=== PATIENT | male | born 1980 | race Caucasian/White ===

== ENCOUNTER 2019-02-28 02:01 | Emergency (ER) | payer MEDICARE, MEDICAID ==
[2019-02-28] MEDS ORDERED: Sulfamethoxazole/Trimethoprim 400-80 MG Tab PO STA (02:16)
[2019-02-28] MEDS ORDERED: Acetaminophen/HYDROcodone 325-5 MG Tab PO ONE (02:16)
--- NOTE | 2019-02-28 02:19 | EDM.PDOC ---
ED HPI GENERAL MEDICAL PROBLEM - General Chief Complaint: ENT Problem Stated Complaint: TOOTH PAIN Time Seen by Provider: 02/28/19 02:01 Source of Information: Reports: Patient History Limitations: Reports: No Limitations - History of Present Illness INITIAL COMMENTS - FREE TEXT/NARRATIVE: 38 y.o.w.m came to the ed with toothache for several days. Pt does not smoke or drink. 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 [employer]AME ASSEMBLY: Reports: NSAIDS - Related Data Allergies Allergy/AdvReac Type Severity Reaction Status Date / Time aspirin Allergy Rash Verified 02/28/19 02:13 Penicillins Allergy Anaphylactic Verified 02/28/19 02:13 Shock Home Meds: Home Meds Clotrimazole [Lotrimin AF 1% Crm] 1 mg TOP BID #1 tube 02/28/19 [Rx] Sulfamethoxazole/Trimethoprim [Bactrim Ds Tablet] 1 each PO BID #20 tablet 02/28 [Rx] ED ROS ENT - Review of Systems Review Of Systems: See Below Constitutional: Reports: No Symptoms HEENT: Reports: Dental Pain Respiratory: Reports: No Symptoms Cardiovascular: Reports: No Symptoms Endocrine: Reports: No Symptoms GI/Abdominal: Reports: No Symptoms : Reports: No Symptoms Musculoskeletal: Reports: No Symptoms Skin: Reports: No Symptoms Neurological: Reports: No Symptoms Psychiatric: Reports: No Symptoms Hematologic/Lymphatic: Reports: No Symptoms Immunologic: Reports: No Symptoms ED EXAM, ENT - Physical Exam Exam: See Below Exam Limited By: No Limitations General Appearance: Alert, WD/WN, Mild Distress Eye Exam: Bilateral Eye: Normal Inspection Ears: Normal External Exam, Normal Canal Nose: Normal Inspection, Normal Mucousa Mouth/Throat: Dental Pain, Dental Tenderness, Dental Trauma Head: Atraumatic, Normocephalic Neck: Normal Inspection, Supple, Non-Tender, Full Range of Motion Respiratory/Chest: No Respiratory Distress, Lungs Clear, Normal Breath Sounds, Chest Non-Tender Cardiovascular: Normal Peripheral Pulses, Regular Rate, Rhythm, No Edema, No Gallop, No Rub GI/Abdominal: Normal Bowel Sounds, Soft, Non-Tender, No Organomegaly, Pelvis Stable (Male) Exam: Deferred Rectal (Males) Exam: Deferred Back: Normal Inspection, Full Range of Motion Extremities: Normal Inspection, Normal Range of Motion, Non-Tender Neurological: Alert, Oriented, CN II-XII Intact, Normal Cognition, Normal Gait Psychiatric: Normal Affect, Normal Mood Skin: Warm, Dry, Intact, Normal Color, Rash (fugal rash bilateral groins) Lymphatic: No Adenopathy Course - Vital Signs Text/Narrative:: 38 y.o.w.m came to the ed with toothache for several days. Pt does not smoke or drink. 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 BP 160/85 RR 18 Pulse ox 100% on RA Pulse 88 Temp 36.8 PE: WNWD W M with poor dentition and a rash at his groin Impression:Toothache, gingivitis, Tinea cruris Tx: 1 Screven to take home, Bactrim DS. Motrin from his home meds. Lotrimin cream as a prescription Reexam: Pt did fine in the ED Plan: D/C with instructions Last Recorded V/S: Last Vital Signs Temp 36.8 C 02/28/19 02:14 Pulse 88 02/28/19 02:14 Resp 18 02/28/19 02:14 BP 160/85 H 02/28/19 02:14 Pulse Ox 100 02/28/19 02:14 - Orders/Labs/Meds Meds: Medications Discontinued Medications Generic Name Dose Route Start Last Admin Trade Name Emily PRN Reason Stop Dose Admin Hydrocodone Bitart/Acetaminophen 1 tab 02/28/19 02:16 02/28/19 02:29 Screven 325-5 Mg PO 02/28/19 02:17 1 tab ONETIME ONE Administration Trimethoprim/Sulfamethoxazole 1 tab 02/28/19 02:16 Septra PO 02/28/19 02:17 ONETIME STA Trimethoprim/Sulfamethoxazole 1 tab 02/28/19 02:30 02/28/19 02:34 Septra Ds PO 02/28/19 02:31 1 tab ONETIME ONE Administration Departure - Departure Time of Disposition: 02:19 Disposition: Home, Self-Care 01 Condition: Good Clinical Impression: Toothache, Gingivitis - Discharge Information Prescriptions: Clotrimazole [Lotrimin AF 1% Crm] 1 mg TOP BID #1 tube Sulfamethoxazole/Trimethoprim [Bactrim Ds Tablet] 1 each PO BID #20 tablet Referrals: Charito Lundberg INDUSTRIAL RELATIONS SPECIALIST [Primary Care Provider] - Forms: ED Department Discharge Additional Instructions: Please take the ABx as recommended, Motrin for pain, please f/u with your dentist, please come back if your symptoms get worse acutely
[2019-02-28] MEDS ORDERED: Sulfamethoxazole/Trimethoprim 800-160 MG Tab PO ONE (02:30)
== END 2019-02-28 02:45 | disposition home or self-care (01) ==
LOC: FB.ED 02:01
DX: K05.10 Chronic gingivitis, plaque induced (principal); B35.6 Tinea cruris; Z79.899 Other long term (current) drug therapy; Z88.6 Allergy status to analgesic agent; Z88.0 Allergy status to penicillin
CPT/HCPCS: 99282; A9270

== ENCOUNTER → 2019-09-16 | Outpatient (CLI) | payer MEDICARE, MEDICAID | LOC: FB.CLBR 08:00 | PROVIDERS: ATTEND Nurse Practitioner Family | DX: J45.909 Unspecified asthma, uncomplicated (principal) | CPT/HCPCS: 99213 ==

== ENCOUNTER 2019-10-01 14:31 | Emergency (ER) | payer MEDICARE, MEDICAID ==
--- NOTE | 2019-10-01 16:05 | EDM.PDOC ---
ED HPI GENERAL MEDICAL PROBLEM - General Chief Complaint: General Stated Complaint: L SIDE NUMBNESS Time Seen by Provider: 10/01/19 14:35 Source of Information: Reports: Patient History Limitations: Reports: No Limitations - History of Present Illness INITIAL COMMENTS - FREE TEXT/NARRATIVE: Patient presented to the ED because of left lower extremity weakness which started at 11 pm last night. The weakness progressed to the left UE and left facial numbness. He also c/o leaning towards the right side when he tried to walk this morning.. He denies diplopia,blurry vision and there is no noticeable facial droop or slurred speech. left posterior thigh Pain Score (Numeric/FACES): 9 - Related Data Allergies Allergy/AdvReac Type Severity Reaction Status Date / Time aspirin Allergy Rash Verified 02/28/19 02:13 Penicillins Allergy Anaphylactic Verified 02/28/19 02:13 Shock Home Meds: Home Meds Lisinopril 40 mg PO DAILY 10/01/19 [History] Magnesium Oxide 400 mg PO DAILY 10/01/19 [History] amLODIPine [Norvasc] 2.5 mg PO DAILY 10/01/19 [History] hydroCHLOROthiazide [Hydrochlorothiazide] 25 mg PO DAILY 10/01/19 [History] Past Medical History Cardiovascular History: Reports: Hypertension Respiratory History: Reports: Asthma, SOB Social & Family History - Family History Family Medical History: Noncontributory - Tobacco Use Smoking Status *Q: Never Smoker - Caffeine Use Caffeine Use: Reports: Soda - Recreational Drug Use Recreational Drug Use: No ED ROS GENERAL - Review of Systems Review Of Systems: See Below Constitutional: Reports: No Symptoms HEENT: Reports: No Symptoms Respiratory: Reports: No Symptoms Cardiovascular: Reports: No Symptoms Endocrine: Reports: No Symptoms GI/Abdominal: Reports: No Symptoms, Melena : Reports: No Symptoms Musculoskeletal: Reports: No Symptoms, Joint Pain Skin: Reports: No Symptoms Neurological: Reports: No Symptoms, Numbness, Difficulty Walking, Weakness Psychiatric: Reports: No Symptoms Hematologic/Lymphatic: Reports: No Symptoms Immunologic: Reports: No Symptoms ED EXAM, GENERAL - Physical Exam Exam: See Below Exam Limited By: No Limitations General Appearance: Alert, No Apparent Distress Eye Exam: Bilateral Eye: PERRL Course - Vital Signs Text/Narrative:: Labs.HEAD CT,CXR and plan of care was discussed with the patient and his friend EKG-Sinus Tach Trop-neg CXR-neg Head CT neg Patient is not a candidate for thrombolytics because his last time without symptoms was at 11 pm last night. Neuro Consult with Dr Alvarez who agreed with the above plan Last Recorded V/S: Last Vital Signs Temp 37.1 C 10/01/19 14:31 Pulse 99 10/01/19 14:31 Resp 33 H 10/01/19 14:31 BP 163/107 H 10/01/19 14:31 Pulse Ox 96 10/01/19 14:31 - Orders/Labs/Meds Orders: Active Orders 24 hr Category Date Time Status EKG Documentation Completion [RC] ASDIRECTED Care 10/01/19 14:47 Active Chest 1V Frontal [CR] Stat Exams 10/01/19 14:46 Taken Head wo Cont [CT] Stat Exams 10/01/19 14:46 Taken EKG 12 Lead [EK] Routine Ther 10/01/19 14:46 Ordered Labs: Laboratory Tests 10/01/19 10/01/19 10/01/19 Range/Units 15:15 15:15 15:15 WBC 14.6 H (4.5-12.0) X10-3/uL RBC 5.46 (4.30-5.75) x10(6)uL Hgb 16.7 (13.5-17.8) g/dL Hct 49.4 (30.0-51.3) % MCV 90.5 (80-96) fL MCH 30.5 (27.7-33.6) pg MCHC 33.7 (32.2-35.4) g/dL RDW 12.7 (11.5-15.5) % Plt Count 285 (125-369) X10(3)uL MPV 7.8 (7.4-10.4) fL Neut % (Auto) 65.8 (46-82) % Lymph % (Auto) 24.0 (13-37) % Throckmorton % (Auto) 7.5 (4-12) % Eos % (Auto) 0 L (1.0-5.0) % Baso % (Auto) 2 (0-2) % Neut # (Auto) 9.6 H (1.6-8.3) # Lymph # (Auto) 3.5 (0.6-5.0) # Th[place]morton # (Auto) 1.1 (0.0-1.3) # Eos # (Auto) 0.1 (0.0-0.8) # Baso # (Auto) 0.3 H (0.0-0.2) # PT 9.3 (8.7-11.1) INR 0.96 (0.89-1.13) APTT 24.3 L (24.4-33.2) SECONDS Sodium 137 (135-145) mmol/L Potassium 4.4 D (3.5-5.3) mmol/L Chloride 103 (100-110) mmol/L Carbon Dioxide 27 (21-32) mmol/L BUN 10 (7-18) mg/dL Creatinine 0.9 (0.70-1.30) mg/dL Est Cr Clr Drug Dosing 90.44 mL/min Estimated GFR (MDRD) > 60 (>60) BUN/Creatinine Ratio 11.1 (9-20) Glucose 115 (80-116) mg/dL Calcium 9.0 (8.6-10.2) mg/dL Total Bilirubin 0.7 (0.1-1.3) mg/dL AST 71 H (5-25) IU/L ALT 135 H (12-36) U/L Alkaline Phosphatase 120 H (56-112) IU/L Troponin I (<0.017-0.056) ng/mL Total Protein 8.7 H (6.0-8.0) g/dL Albumin 3.9 (3.5-5.2) g/dL Globulin 4.8 g/dL Albumin/Globulin Ratio 0.8 10/01/19 Range/Units 15:15 WBC (4.5-12.0) X10-3/uL RBC (4.30-5.75) x10(6)uL Hgb (13.5-17.8) g/dL Hct (30.0-51.3) % MCV (80-96) fL MCH (27.7-33.6) pg MCHC (32.2-35.4) g/dL RDW (11.5-15.5) % Plt Count (125-369) X10(3)uL MPV (7.4-10.4) fL Neut % (Auto) (46-82) % Lymph % (Auto) (13-37) % [place]morton % (Auto) (4-12) % Eos % (Auto) (1.0-5.0) % Baso % (Auto) (0-2) % Neut # (Auto) (1.6-8.3) # Lymph # (Auto) (0.6-5.0) # Th[place]morton # (Auto) (0.0-1.3) # Eos # (Auto) (0.0-0.8) # Baso # (Auto) (0.0-0.2) # PT (8.7-11.1) INR (0.89-1.13) APTT (24.4-33.2) SECONDS Sodium (135-145) mmol/L Potassium (3.5-5.3) mmol/L Chloride (100-110) mmol/L Carbon Dioxide (21-32) mmol/L BUN (7-18) mg/dL Creatinine (0.70-1.30) mg/dL Est Cr Clr Drug Dosing mL/min Estimated GFR (MDRD) (>60) BUN/Creatinine Ratio (9-20) Glucose (80-116) mg/dL Calcium (8.6-10.2) mg/dL Total Bilirubin (0.1-1.3) mg/dL AST (5-25) IU/L ALT (12-36) U/L Alkaline Phosphatase (56-112) IU/L Troponin I < 0.017 L (<0.017-0.056) ng/mL Total Protein (6.0-8.0) g/dL Albumin (3.5-5.2) g/dL Globulin g/dL Albumin/Globulin Ratio Departure - Departure Time of Disposition: 16:10 Disposition: DC/Tfer to SNF 03 Condition: Good Clinical Impression: CVA (cerebral vascular accident) - Discharge Information Referrals: Luz Fuentes NP [Primary Care Provider] - - My Orders Last 24 Hours: My Active Orders 10/01/19 14:46 Chest 1V Frontal [CR] Stat Head wo Cont [CT] Stat EKG 12 Lead [EK] Routine 10/01/19 14:47 EKG Documentation Completion [RC] ASDIRECTED - Assessment/Plan Last 24 Hours: My Active Orders 10/01/19 14:46 Chest 1V Frontal [CR] Stat Head wo Cont [CT] Stat EKG 12 Lead [EK] Routine 10/01/19 14:47 EKG Documentation Completion [RC] ASDIRECTED
== END 2019-10-01 16:48 ==
LOC: FB.ED 14:31
DX: I63.9 Cerebral infarction, unspecified (principal); I10 Essential (primary) hypertension; Z88.6 Allergy status to analgesic agent; Z88.0 Allergy status to penicillin; Z79.899 Other long term (current) drug therapy
CPT/HCPCS: 36415; 70450; 71045; 80053; 84484; 85025; 85610; 85730; 93005; 99285-25

== ENCOUNTER 2019-12-05 23:34 | Emergency (ER) | payer MEDICARE, MEDICAID ==
--- NOTE | 2019-12-05 23:49 | EDM.PDOC ---
ED HPI GENERAL MEDICAL PROBLEM - General Stated Complaint: TOOTHACHE AND FOOT PAIN Time Seen by Provider: 12/05/19 23:48 Source of Information: Reports: Patient History Limitations: Reports: No Limitations - History of Present Illness INITIAL COMMENTS - FREE TEXT/NARRATIVE: 39-year-old male who reports that 2 days ago he was running after his nephew and he jammed his right fifth toe into the pack in place. He had immediate pain and the area of his fourth and fifth toes on the right foot as well as the distal lateral right foot. He has had pain in that area since the injury that he rates as a 10/10 with movement and walking and down to 0/10 at rest. The pain is sharp. There were no other injuries. This morning he developed pain in his left upper tooth. His some redness around the area. That pain he reports is an 8/10. This pain is sharp and aching and throbbing. He has had no fevers or chills. He has had no difficulty swallowing. No difficulty breathing. No nausea or vomiting. There are no other associated signs or symptoms. There are no other modifying factors. 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 400 mg) left upper tooth and right foot Pain Score (Numeric/FACES): 6 - Related Data Allergies Allergy/AdvReac Type Severity Reaction Status Date / Time aspirin Allergy Rash Verified 02/28/19 02:13 Penicillins Allergy Anaphylactic Verified 02/28/19 02:13 Shock Home Meds: Home Meds Magnesium Oxide 400 mg PO DAILY 10/01/19 [History] amLODIPine [Norvasc] 2.5 mg PO DAILY 10/01/19 [History] hydroCHLOROthiazide [Hydrochlorothiazide] 25 mg PO DAILY 10/01/19 [History] lisinopriL [Lisinopril] 40 mg PO DAILY 10/01/19 [History] Clindamycin HCl 450 mg PO TID #90 capsule 12/06/19 [Rx] Ibuprofen 800 mg PO TID PRN #30 tablet 12/06/19 [Rx] Past Medical History Cardiovascular History: Reports: Hypertension Respiratory History: Reports: Asthma, Sleep Apnea (On CPAP) Neurological History: Reports: CVA, Other (See Below) (Restless leg syndrome) - Past Surgical History Other Surgical History Comment: No previous surgeries. Social & Family History - Tobacco Use Smoking Status *Q: Current Every Day Smoker - Caffeine Use Caffeine Use: Reports: Soda - Alcohol Use Alcohol Use History: No - Living Situation & Occupation Occupation: Disabled ED ROS ENT - Review of Systems Review Of Systems: See Below Constitutional: Reports: No Symptoms HEENT: Reports: Dental Pain Respiratory: Reports: No Symptoms Cardiovascular: Reports: No Symptoms Endocrine: Reports: No Symptoms GI/Abdominal: Reports: No Symptoms : Reports: No Symptoms Musculoskeletal: Reports: Foot Pain (And right fifth toe pain) Skin: Reports: No Symptoms Neurological: Reports: No Symptoms Hematologic/Lymphatic: Reports: No Symptoms Immunologic: Reports: No Symptoms ED EXAM, ENT - Physical Exam Exam: See Below Exam Limited By: No Limitations General Appearance: Alert, WD/WN, No Apparent Distress Eye Exam: Bilateral Eye: EOMI, Normal Inspection, PERRL Ears: Normal External Exam, Hearing Grossly Normal Nose: Normal Inspection, Normal Mucousa, No Blood Mouth/Throat: Normal Oropharynx, Dental Pain, Gum Swelling Head: Atraumatic, Normocephalic Neck: Normal Inspection, Supple, Non-Tender, Full Range of Motion Respiratory/Chest: No Respiratory Distress, Lungs Clear, Normal Breath Sounds, No Accessory Muscle Use, Chest Non-Tender Cardiovascular: Normal Peripheral Pulses, Regular Rate, Rhythm, No JVD GI/Abdominal: Normal Bowel Sounds, Soft, Non-Tender, No Mass Back: Normal Inspection Extremities: Normal Range of Motion, Normal Capillary Refill, Other (Some swelling over the distal lateral right foot and fourth and fifth toes. There is tenderness to palpation over the as well. There is no crepitus or obvious deformity noted.) Neurological: Alert, CN II-XII Intact, No Motor/Sensory Deficits Skin: Warm, Dry, Intact, Normal Color, No Rash Course - Vital Signs Last Recorded V/S: Last Vital Signs Temp 36.8 C 12/05/19 23:34 Pulse 101 H 12/05/19 23:34 Resp 18 12/05/19 23:34 BP 177/98 H 12/05/19 23:34 Pulse Ox 96 12/05/19 23:34 - Orders/Labs/Meds Orders: Active Orders 24 hr Category Date Time Status Foot Comp Min 3V Rt [CR] Stat Exams 12/06/19 00:02 Taken Meds: Medications Discontinued Medications Generic Name Dose Route Start Last Admin Trade Name Freq PRN Reason Stop Dose Admin Acetaminophen 1,000 mg 12/06/19 00:02 12/06/19 00:07 Tylenol Extra Strength PO 12/06/19 00:03 1,000 mg ONETIME ONE Administration Clindamycin HCl 450 mg 12/06/19 00:38 12/06/19 00:49 Cleocin PO 12/06/19 00:39 450 mg ONETIME ONE Administration - Radiology Interpretation Free Text/Narrative:: X-ray of right foot shows fracture of the base of the proximal phalanx of the fifth toe. - Re-Assessments/Exams Free Text/Narrative Re-Assessment/Exam: 12/06/19 00:28: He patient has a dental abscess with his left upper tooth. He also has a fracture of his right fifth toe. For the dental abscess we will treat him with clindamycin 450 mg 3 times a day 10 days. He was advised to try to see a dentist as soon as he can arrange. We will also angi tape his fourth and fifth toes on his right foot. This is for comfort and support. He may take ibuprofen and Tylenol as needed for pain. Departure - Departure Time of Disposition: 00:40 Disposition: Home, Self-Care 01 Condition: Good Clinical Impression: Dental abscess, Carious teeth Fracture of fifth toe, right, closed Qualifiers: Encounter type: initial encounter Qualified Code(s): S92.501A - Displaced unspecified fracture of right lesser toe(s), initial encounter for closed fracture - Discharge Information Prescriptions: Clindamycin HCl 450 mg PO TID #90 capsule Ibuprofen 800 mg PO TID PRN #30 tablet PRN Reason: Pain Instructions: Toe Fracture, [id number], Dental Abscess, [id number] Referrals: PCP,None [Primary Care Provider] - Forms: ED Department Discharge Additional Instructions: You have an infection of your left upper tooth. I am placing you on an antibiotic to treat for this infection (clindamycin 150 mg) but you will need to see a dentist as soon as you can arrange. You should take probiotics or eat yogurt daily while you are on the antibiotics. He also have a fracture of your right fifth toe. You may angi tape the fourth and fifth toes together as we did in the emergency department to help with the discomfort. Ambulate as tolerated. You may take Tylenol 1000 mg by mouth every 6 hours as needed for pain. Medication as prescribed for pain (Ibuprofen 800 mg). Back to the emergency department for trouble swallowing, trouble breathing or any other concerning sign or symptom. Sepsis Event Note - Focused Exam Vital Signs: Vital Signs Temp Pulse Resp BP Pulse Ox 12/05/19 23:34 36.8 C 101 H 18 177/98 H 96 Date Exam was Performed: 12/06/19 Time Exam was Performed: 01:06 - My Orders Last 24 Hours: My Active Orders 12/06/19 00:02 Foot Comp Min 3V Rt [CR] Stat - Assessment/Plan Last 24 Hours: My Active Orders 12/06/19 00:02 Foot Comp Min 3V Rt [CR] Stat
[2019-12-06] MEDS ORDERED: Acetaminophen 500 MG Tab PO ONE (00:02)
[2019-12-06] MEDS ORDERED: Clindamycin HCl 150 MG Cap PO ONE (00:38)
--- NOTE | 2019-12-08 10:58 | CR ---
INDICATION: Injury, now with pain. RIGHT FOOT: Three views of the right foot revealed a transverse fracture through the junction at the proximal metaphysis and diaphysis of the proximal phalanx of the fifth toe with adequate position and alignment suggested - minimal medial angulation and offset of the distal fracture fragment. Degenerative changes are noted at the DIPJs of the fourth and fifth toes. Large posterior calcaneal spur is noted with small plantar calcaneal spur. No other significant bone or joint abnormality was identified. IMPRESSION: 1. Fracture with adequate position and alignment of the fifth toe. 2. Osteoarthritis. 3. Large heel spur. MTDD
== END 2019-12-06 00:59 | disposition home or self-care (01) ==
LOC: FB.ED 23:34
DX: S92.511A Displaced fracture of proximal phalanx of right lesser toe(s), initial encounter for closed fracture (principal); K04.7 Periapical abscess without sinus; K02.9 Dental caries, unspecified; G47.30 Sleep apnea, unspecified; I10 Essential (primary) hypertension; F17.200 Nicotine dependence, unspecified, uncomplicated; Z88.6 Allergy status to analgesic agent; Z88.0 Allergy status to penicillin; Z79.899 Other long term (current) drug therapy; Z86.73 Personal history of transient ischemic attack (TIA), and cerebral infarction without residual deficits; W23.1XXA Caught, crushed, jammed, or pinched between stationary objects, initial encounter; Y93.02 Activity, running
CPT/HCPCS: 73630; 99283; A9270

== ENCOUNTER 2021-02-17 22:17 | Emergency (ER) | payer MEDICARE, MEDICAID ==
[2021-02-17] MEDS ORDERED: Lidocaine 2% Viscous Solution 15 ML Cup PO STA (22:20)
[2021-02-17] MEDS ORDERED: Amoxicillin 500 MG Cap PO STA (22:31)
--- NOTE | 2021-02-17 22:47 | EDM.PDOC ---
ED HPI GENERAL MEDICAL PROBLEM - General Stated Complaint: TOOTH ACHE Time Seen by Provider: 02/17/21 22:30 Source of Information: Reports: Patient History Limitations: Reports: No Limitations - History of Present Illness INITIAL COMMENTS - FREE TEXT/NARRATIVE: Patient presented to the ED because of dental pain over the Left upper wisdom tooth area for 1 week. He took OTC tylenol and Ibuprofen without significant relief. - Related Data Allergies Allergy/AdvReac Type Severity Reaction Status Date / Time aspirin Allergy Rash Verified 02/28/19 02:13 Penicillins Allergy Anaphylactic Verified 02/28/19 02:13 Shock Home Meds: Home Meds Magnesium Oxide 400 mg PO DAILY 10/01/19 [History] amLODIPine [Norvasc] 2.5 mg PO DAILY 10/01/19 [History] hydroCHLOROthiazide [Hydrochlorothiazide] 25 mg PO DAILY 10/01/19 [History] lisinopriL [Lisinopril] 40 mg PO DAILY 10/01/19 [History] Clindamycin HCl 450 mg PO TID #90 capsule 12/06/19 [Rx] Ibuprofen 800 mg PO TID PRN #30 tablet 12/06/19 [Rx] Amoxicillin 500 mg PO TID #30 capsule 02/17/21 [Rx] Lidocaine 2% [Xylocaine 2% Viscous] 2 ml PO ASDIRECTED #30 ml 02/17/21 [Rx] Past Medical History Cardiovascular History: Reports: Hypertension Respiratory History: Reports: Asthma, Sleep Apnea (On CPAP) Neurological History: Reports: CVA, Other (See Below) (Restless leg syndrome) - Past Surgical History Other Surgical History Comment: No previous surgeries. Social & Family History - Family History Family Medical History: No Pertinent Family History - Caffeine Use Caffeine Use: Reports: Soda - Living Situation & Occupation Occupation: Disabled ED ROS ENT - Review of Systems Review Of Systems: See Below Constitutional: Reports: No Symptoms HEENT: Reports: Other (multiple dental caries) Respiratory: Reports: No Symptoms Cardiovascular: Reports: No Symptoms Endocrine: Reports: No Symptoms GI/Abdominal: Reports: No Symptoms : Reports: No Symptoms Musculoskeletal: Reports: No Symptoms Skin: Reports: No Symptoms Neurological: Reports: No Symptoms Psychiatric: Reports: No Symptoms ED EXAM, ENT - Physical Exam Exam: See Below Exam Limited By: No Limitations General Appearance: Alert, No Apparent Distress Ears: Normal External Exam, Normal Canal, Hearing Grossly Normal Nose: Normal Inspection, Normal Mucousa, No Blood Mouth/Throat: Normal Inspection, Other (multiple dental caries and gum swelling) Neck: Normal Inspection, Supple, Non-Tender Respiratory/Chest: No Respiratory Distress, Lungs Clear, Normal Breath Sounds Cardiovascular: Normal Peripheral Pulses, Regular Rate, Rhythm, No Edema, No Gallop, No JVD, No Murmur, No Rub GI/Abdominal: Normal Bowel Sounds, Soft, Non-Tender, No Organomegaly Back: Normal Inspection, Full Range of Motion Neurological: Alert, Oriented, CN II-XII Intact, Normal Cognition Course - Vital Signs Text/Narrative:: Viscous lidoocaine 2% was applied by ED nurse with significant relief of pain Amoxicillin 500 mg PO x1 Last Recorded V/S: Last Vital Signs Temp 36.7 C 02/17/21 22:20 Pulse 120 H 02/17/21 22:50 Resp 16 02/17/21 22:50 BP 167/110 H 02/17/21 22:50 Pulse Ox 97 02/17/21 22:50 - Orders/Labs/Meds Meds: Medications Discontinued Medications Generic Name Dose Route Start Last Admin Trade Name Emily PRN Reason Stop Dose Admin Amoxicillin 500 mg 02/17/21 22:31 02/17/21 22:44 Amoxicillin 500 Mg Cap PO 02/17/21 22:32 500 mg NOW STA Administration Lidocaine HCl 15 ml 02/17/21 22:20 02/17/21 22:20 Lidocaine 2% Viscous Solution 15 Ml Cup PO 02/17/21 22:21 15 ml NOW STA Administration Departure - Departure Time of Disposition: 22:50 Disposition: Home, Self-Care 01 Condition: Good Clinical Impression: Pain, dental, Gingivitis - Discharge Information Prescriptions: Amoxicillin 500 mg PO TID #30 capsule Lidocaine 2% [Xylocaine 2% Viscous] 2 ml PO ASDIRECTED #30 ml Instructions: Dental Abscess, [id number], Benzocaine mouth gel, ointment, solution, or dental paste Referrals: Ny Villalpando NP [Primary Care Provider] - Forms: ED Department Discharge Additional Instructions: Please read discharge instructions on dental pain and infection Take ibuprofen 800 mg with tylenol 1000 mg every 8 hours as needed for pain. Take them both at the same time for better pain relief Apply the viscous lidocaine evry 2 hours as needed for pain Follow up with your dentist as soon as you can Sepsis Event Note (ED) - Focused Exam Vital Signs: Vital Signs Temp Pulse Resp BP Pulse Ox 02/17/21 22:50 120 H 16 167/110 H 97 02/17/21 22:20 36.7 C 118 H 18 173/110 H 97
== END 2021-02-17 22:55 | disposition home or self-care (01) ==
LOC: FB.ED 22:17
DX: K02.9 Dental caries, unspecified (principal); K05.10 Chronic gingivitis, plaque induced; I10 Essential (primary) hypertension; J45.909 Unspecified asthma, uncomplicated; Z88.6 Allergy status to analgesic agent; Z88.0 Allergy status to penicillin; Z79.899 Other long term (current) drug therapy; Z86.73 Personal history of transient ischemic attack (TIA), and cerebral infarction without residual deficits
CPT/HCPCS: 99282; A9270-GY

== ENCOUNTER 2022-10-11 13:01 | Emergency (ER) | payer MEDICARE, MEDICAID ==
[2022-10-11] MEDS ORDERED: Sodium Chloride 0.9% 10 ML Syringe FLUSH PRN (13:13)
[2022-10-11 13:51] LABS: ESTIMATED GFR 95 mL/min (>60)
[2022-10-11] MEDS ORDERED: Pantoprazole 40 MG Vial IVPUSH ONE (14:24)
[2022-10-11] MEDS ORDERED: Ondansetron 4 MG/2 ML SDV IVPUSH ONE (14:24)
[2022-10-11] MEDS ORDERED: Sodium Chloride 0.9% 1,000 ML IV SCH (14:30)
== END 2022-10-11 15:58 | disposition home or self-care (01) ==
LOC: FB.ED 13:01
DX: K92.0 Hematemesis (principal); R04.0 Epistaxis; I10 Essential (primary) hypertension; Z88.6 Allergy status to analgesic agent; Z88.0 Allergy status to penicillin; Z79.899 Other long term (current) drug therapy
CPT/HCPCS: 30903; 36415; 80053; 85025; 85610; 96361; 96374; 96375; 99284-25; C9113; J2405; J7030